=== PATIENT | male | born 1935 | race Caucasian/White ===

== ENCOUNTER 2017-06-29 14:31 | Inpatient (IN) | payer OTHER ==
[~2017-06-29] VITALS: Ht 177.8 cm; Wt 83.0 kg
[2017-06-29] MEDS ORDERED: NACL 0.9% 1,000 ML IV SCH (14:40)
[2017-06-29 14:42] VITALS: BP 118/74
[2017-06-29] MEDS ORDERED: CEPH500C16 GT (14:50)
[2017-06-29] MEDS ORDERED: ATOR20TA GT (14:50)
[2017-06-29] MEDS ORDERED: PRON INH (14:50)
[2017-06-29] MEDS ORDERED: ATRN INH (14:50)
[2017-06-29] MEDS ORDERED: ASCO500T45 GT (14:50)
[2017-06-29] MEDS ORDERED: CRAN450C GT (14:50)
[2017-06-29] MEDS ORDERED: LACT1CAP63 PO (14:50)
[2017-06-29 15:29] LABS: BASOPHILS # (AUTO) 0.1 K/uL (0.00-0.22); BASOPHILS % (AUTO) 1.1 % (0.0-2.0); EOSINOPHILS # (AUTO) 0.1 K/uL (0-0.4); EOSINOPHILS % (AUTO) 1.1 % (0.0-4.0); HEMATOCRIT 36.5 % (36-52); HEMOGLOBIN 11.6 g/dL (12.0-18.0); LYMPHOCYTES # (AUTO) 1.3 K/uL (2.0-11.5); LYMPHOCYTES % (AUTO) 12.9 % (20.5-51.1); MEAN CORPUSCULAR HEMOGLOBIN 27 pg (27-31); MEAN CORPUSCULAR HGB CONC 32 g/dL (33-37); MEAN CORPUSCULAR VOLUME 85 fL (80-94); MONOCYTES # (AUTO) 0.7 K/uL (0.8-1.0); NEUTROPHILS # (AUTO) 7.7 K/uL (1.8-7.7); NEUTROPHILS % (AUTO) 77.9 % (42.2-75.2); PLATELET COUNT (AUTO) 300 K/uL (140-450); WHITE BLOOD COUNT (AUTO) 9.9 K/uL (4.8-10.8)
[2017-06-29 15:39] LABS: ALBUMIN 2.7 g/dL (3.4-5.0); ANION GAP 11.3 (8-16); ASPARTATE AMINOTRANSFERASE 20 U/L (15-37); CARBON DIOXIDE 35.6 mmol/L (21-32); CHLORIDE 122 mmol/L (98-107); CREATININE 1.2 mg/dL (0.7-1.3); GLUCOSE 129 mg/dL (74-106); POTASSIUM 3.9 mmol/L (3.5-5.1); TOTAL BILIRUBIN 0.3 mg/dL (0.0-1.0)
[2017-06-29 15:41] LABS: SODIUM SERUM 165 mmol/L (136-145); UREA NITROGEN, BLOOD 63 mg/dL (7-18)
[2017-06-29 15:58] LABS: APPEARANCE,URINE CLEAR (CLEAR); BILIRUBIN,URINE NEGATIVE (NEGATIVE); BLOOD, URINE NEGATIVE (NEGATIVE); COLOR,URINE YELLOW (YELLOW); LEUKOCYTE ESTERASE ,URINE NEGATIVE (NEGATIVE); NITRITE, URINE NEGATIVE (NEGATIVE); UGLUCOSE NEGATIVE (NEGATIVE)
[2017-06-29] MEDS ORDERED: ONDANSETRON 4 MG/2 ML VIAL IVP PRN (16:20)
[2017-06-29] MEDS ORDERED: LORazepam 2 MG/ML VIAL IVP PRN (16:20)
[2017-06-29 17:05] VITALS: BP 124/62
[2017-06-29] MEDS: AZITHROMYCIN 500 MG in DEXTROSE 5% 250 ML IV SCH (17:23)
[2017-06-29] MEDS: NACL 0.45% 1,000 ML IV SCH (17:24)
[2017-06-29 20:00] VITALS: BP 106/67
[2017-06-30 00:27] LABS: CHLORIDE,URINE RANDOM 48 mmol/L (110-250); CREATININE,URINE RANDOM 111 mg/dL (30-125)
[2017-06-30 00:40] VITALS: BP_SYST 101; BP_SYST 106; BP_DIAS 67
[2017-06-30 02:03] LABS: CREATINE KINASE MB 0.2 ng/mL (0-3.6)
[2017-06-30] MEDS: NACL 0.45% 1,000 ML IV SCH ×3 (02:20→13:16)
[2017-06-30 04:00] VITALS: BP 111/64
[2017-06-30] MEDS ORDERED: Z-GUARD PASTE TP PRN ×2 (04:45→11:10)
[2017-06-30] MEDS ORDERED: NACL 0.9% IRR 250 ML BOTTLE IR PRN (04:45)
[2017-06-30 08:00] VITALS: BP 125/69
[2017-06-30 08:56] LABS: BASOPHILS # (AUTO) 0.1 K/uL (0.00-0.22); BASOPHILS % (AUTO) 1.8 % (0.0-2.0); EOSINOPHILS # (AUTO) 0.3 K/uL (0-0.4); EOSINOPHILS % (AUTO) 3.5 % (0.0-4.0); HEMATOCRIT 32.4 % (36-52); HEMOGLOBIN 10.3 g/dL (12.0-18.0); LYMPHOCYTES # (AUTO) 1.3 K/uL (2.0-11.5); LYMPHOCYTES % (AUTO) 17.6 % (20.5-51.1); MEAN CORPUSCULAR HEMOGLOBIN 27 pg (27-31); MEAN CORPUSCULAR HGB CONC 32 g/dL (33-37); MEAN CORPUSCULAR VOLUME 84 fL (80-94); MONOCYTES # (AUTO) 0.4 K/uL (0.8-1.0); NEUTROPHILS # (AUTO) 5.4 K/uL (1.8-7.7); NEUTROPHILS % (AUTO) 72.1 % (42.2-75.2); PLATELET COUNT (AUTO) 220 K/uL (140-450); RED BLOOD CELL COUNT(AUTO) 3.85 MIL/uL (4.20-6.10); WHITE BLOOD COUNT (AUTO) 7.5 K/uL (4.8-10.8)
[2017-06-30 09:09] LABS: CARBON DIOXIDE 33.5 mmol/L (21-32); CHLORIDE 121 mmol/L (98-107); CREATININE 0.9 mg/dL (0.7-1.3); GLUCOSE 97 mg/dL (74-106); POTASSIUM 3.5 mmol/L (3.5-5.1); UREA NITROGEN, BLOOD 49 mg/dL (7-18)
[2017-06-30 09:24] LABS: SODIUM SERUM 161 mmol/L (136-145)
[2017-06-30 10:00] LABS: CKMB RELATIVE INDEX 3.8 (0.0-2.5)
[2017-06-30] MEDS: ENOXAPARIN 40 MG/0.4 ML SYR SUBQ SCH (10:16)
[2017-06-30 12:00] VITALS: BP 115/65
[2017-06-30] MEDS ORDERED: CEPHALEXIN 500 MG CAP GT SCH (12:00)
[2017-06-30] MEDS ORDERED: Z-GUARD PASTE TP SCH (13:00)
[2017-06-30] MEDS ORDERED: NACL 0.9% IRR 250 ML BOTTLE IR SCH (13:00)
[2017-06-30] MEDS: NACL 0.9% IRR 250 ML BOTTLE IR SCH (13:16)
[2017-06-30] MEDS: Z-GUARD PASTE TP SCH (13:16)
[2017-06-30] MEDS: ALBUTEROL 0.083% 2.5 MG/3 ML NEBU INH SCH ×2 (14:46→19:30)
[2017-06-30] MEDS: IPRATROPIUM 0.02% 0.5 MG/2.5 ML NEBU INH SCH ×2 (14:47→19:28)
[2017-06-30] MEDS: DEXTROSE 5% 1,000 ML IV SCH ×2 (14:56→23:49)
[2017-06-30 16:00] VITALS: BP 113/54
[2017-06-30] MEDS: AZITHROMYCIN 500 MG in DEXTROSE 5% 250 ML IV SCH (17:09)
[2017-06-30 20:00] VITALS: BP 117/60
[2017-06-30] MEDS ORDERED: NON-FORMULARY ITEM (Lactobacillus Acidophilus (Probiotic) 1 EACH) PO SCH (21:00)
[2017-06-30] MEDS ORDERED: NON-FORMULARY ITEM (Cranberry Fruit Concentrate (Cranberry) 450 MG) GT SCH (21:00)
[2017-06-30] MEDS: ASCORBIC ACID 500 MG TAB GT SCH (21:13)
[2017-06-30] MEDS: ATORVASTATIN 20 MG TAB GT SCH (21:13)
[2017-07-01] VITALS: BP 137/57
[2017-07-01] MEDS: NACL 0.9% IRR 250 ML BOTTLE IR SCH ×2 (00:18→13:00)
[2017-07-01] MEDS: Z-GUARD PASTE TP SCH ×2 (00:19→13:00)
[2017-07-01 04:00] VITALS: BP 111/58
[2017-07-01] MEDS: ALBUTEROL 0.083% 2.5 MG/3 ML NEBU INH SCH ×3 (07:51→19:45)
[2017-07-01] MEDS: IPRATROPIUM 0.02% 0.5 MG/2.5 ML NEBU INH SCH ×3 (07:51→19:46)
[2017-07-01 08:48] VITALS: BP 114/61
[2017-07-01 09:10] LABS: ANION GAP 8.3 (8-16); CARBON DIOXIDE 32.1 mmol/L (21-32); CHLORIDE 113 mmol/L (98-107); CREATININE 0.7 mg/dL (0.7-1.3); GLUCOSE 150 mg/dL (74-106); POTASSIUM 3.4 mmol/L (3.5-5.1); SODIUM SERUM 150 mmol/L (136-145); UREA NITROGEN, BLOOD 30 mg/dL (7-18)
[2017-07-01 09:16] LABS: BASOPHILS # (AUTO) 0.3 K/uL (0.00-0.22); EOSINOPHILS # (AUTO) 0.4 K/uL (0-0.4); EOSINOPHILS % (AUTO) 5.8 % (0.0-4.0); HEMATOCRIT 29.2 % (36-52); HEMOGLOBIN 8.8 g/dL (12.0-18.0); LYMPHOCYTES # (AUTO) 1.3 K/uL (2.0-11.5); MEAN CORPUSCULAR HEMOGLOBIN 25 pg (27-31); MEAN CORPUSCULAR HGB CONC 30 g/dL (33-37); MEAN CORPUSCULAR VOLUME 84 fL (80-94); MONOCYTES # (AUTO) 0.4 K/uL (0.8-1.0); MONOCYTES % (AUTO) 6.9 % (1.7-9.3); NEUTROPHILS # (AUTO) 4.1 K/uL (1.8-7.7); NEUTROPHILS % (AUTO) 63.3 % (42.2-75.2); PLATELET COUNT (AUTO) 203 K/uL (140-450); RED BLOOD CELL COUNT(AUTO) 3.47 MIL/uL (4.20-6.10); WHITE BLOOD COUNT (AUTO) 6.5 K/uL (4.8-10.8)
[2017-07-01] MEDS: LACTOBACILLUS RHAMNOSUS GG 1 EACH CAP PO SCH (09:26)
[2017-07-01] MEDS: ASCORBIC ACID 500 MG TAB GT SCH ×2 (09:26→20:44)
[2017-07-01] MEDS: ENOXAPARIN 40 MG/0.4 ML SYR SUBQ SCH (09:26)
[2017-07-01] MEDS: DEXTROSE 5% 1,000 ML IV SCH ×2 (09:40→20:53)
[2017-07-01 12:00] VITALS: BP 150/55
[2017-07-01 16:00] VITALS: BP 106/52
[2017-07-01] MEDS: AZITHROMYCIN 500 MG in DEXTROSE 5% 250 ML IV SCH (17:41)
[2017-07-01 20:22] VITALS: BP 135/63
[2017-07-01] MEDS: ATORVASTATIN 20 MG TAB GT SCH (20:44)
[2017-07-02 00:45] VITALS: BP 115/62
[2017-07-02] MEDS: NACL 0.9% IRR 250 ML BOTTLE IR SCH ×2 (01:00→13:00)
[2017-07-02] MEDS: Z-GUARD PASTE TP SCH ×2 (01:00→13:00)
[2017-07-02 04:20] VITALS: BP 119/61
[2017-07-02] MEDS: DEXTROSE 5% 1,000 ML IV SCH ×2 (05:45→09:03)
[2017-07-02 07:40] LABS: ANION GAP 8.4 (8-16); CARBON DIOXIDE 30.2 mmol/L (21-32); CHLORIDE 106 mmol/L (98-107); CREATININE 0.6 mg/dL (0.7-1.3); GLUCOSE 117 mg/dL (74-106); POTASSIUM 3.6 mmol/L (3.5-5.1); SODIUM SERUM 141 mmol/L (136-145); UREA NITROGEN, BLOOD 18 mg/dL (7-18)
[2017-07-02] MEDS: IPRATROPIUM 0.02% 0.5 MG/2.5 ML NEBU INH SCH ×2 (07:54→16:35)
[2017-07-02] MEDS: ALBUTEROL 0.083% 2.5 MG/3 ML NEBU INH SCH ×2 (07:54→16:35)
[2017-07-02 08:00] VITALS: BP 109/55
[2017-07-02] MEDS: LACTOBACILLUS RHAMNOSUS GG 1 EACH CAP PO SCH (09:04)
[2017-07-02] MEDS: ASCORBIC ACID 500 MG TAB GT SCH (09:04)
[2017-07-02] MEDS: ENOXAPARIN 40 MG/0.4 ML SYR SUBQ SCH (09:05)
[2017-07-02 12:00] VITALS: BP 128/90
[2017-07-02 16:00] VITALS: BP 112/58
[2017-07-02] MEDS: AZITHROMYCIN 500 MG in DEXTROSE 5% 250 ML IV SCH (17:00)
== END 2017-07-02 19:15 | disposition home or self-care (01) | DRG 682 ==
LOC: MED 14:31 → MTU 16:27
PROVIDERS: ADMIT Hospitalist; ATTEND Hospitalist
DX: N17.9 Acute kidney failure, unspecified (principal); J18.9 Pneumonia, unspecified organism; E87.0 Hyperosmolality and hypernatremia; Z93.1 Gastrostomy status; J44.0 Chronic obstructive pulmonary disease with (acute) lower respiratory infection; E86.0 Dehydration; R13.10 Dysphagia, unspecified; E86.1 Hypovolemia; I10 Essential (primary) hypertension; E78.5 Hyperlipidemia, unspecified; I69.991 Dysphagia following unspecified cerebrovascular disease
CPT/HCPCS: 36415; 70450; 71045; 80048; 80053; 81003; 82436; 82550; 82553; 82570; 83605; 83735; 83880; 84300; 84484; 85025; 85610; 85730; 87040; 87081; 87086; 93005; 94640; 96360; 96361; 99285; J0456; J0696; J1650; J7030; J7060; J7613; J7644; Q0092